=== PATIENT | female | born 1940 | race Caucasian/White ===

== ENCOUNTER 2016-10-03 11:49 | Emergency (ER) | payer MEDICARE ==
[~2016-10-03] VITALS: Ht 157.5 cm; Wt 100.0 kg
[~2016-10-03 11:49] MED LIST: ACET325T51 PO; ALBU8.5H2 INHALATION; ASPI-973 PO; BENZ100C8 PO; DILT240C85 PO; DOCU250C2 PO; FLUT12AE8 IH; FLUT16SP NS; FLUT9.9S NS; GUAI10LI PO; LEVO50TA6 PO; LIP40 PO; LORA10CA PO; MODA200T13 PO; MULT-1018 PO; PANT40TA3 PO; POLY17PO6 PO; PRE20 PO; RANI150C4 PO; SENN-133 PO; TIOT18CA3 IH; WARF2.5T82 PO
[2016-10-03 11:53] VITALS: BP 158/101; PULSE 105; RESP 16; O2SAT 94
--- NOTE | 2016-10-03 13:41 | ED.REPORT ---
HPI-Back Pain 40 and Over Date of Service October 03, 2016 ED Provider: Carlos Smyth PA-C Shanique is a 75-year-old female presenting with a chief complaint of low back pain. She reports back pain over the last several weeks gradually worsening in severity. She states she can no longer sit comfortably for the last 3-4 days. She states that her pain initially started after physical therapy session. Seen 3 days ago at urgent care, diagnosed musculoskeletal pain. X-rays performed. Pain worsening since then. He admits use of blood thinners. Denies numbness, tingling, weakness or pain in lower extremity. Denies fever, DM, HIV, organ transplant, immunosuppression, recent surgery, recent infection, history of back surgery, surgical implants and IV drug use, cancer. Denies bowel/bladder dysfunction and saddle anesthesia. Nursing Notes Stated Complaint: SEVERE PAIN IN BACK Chief Complaint: Back Pain or Injury Nursing Notes Reviewed: Yes Allergies: Coded Allergies: lovastatin (Verified Adverse Reaction, Severe, MUSCLE ACHES/PAIN, 10/03/16) Scheduled Albuterol HFA (Proair HFA) 8.5 Gm Hfa.aer.ad 2 PUFFS INHALATION Q4H Aspirin (Aspirin) 81 Mg Tablet 81 MG PO DAILY Atorvastatin (Lipitor) 40 Mg Tablet 40 MG PO DAILY Cephalexin (Cephalexin) 500 Mg Capsule 500 MG PO QID Diltiazem ER (Cardizem CD) 240 Mg Cap.er.24h 240 MG PO DAILY Fluticasone Propionate (Flonase Allergy Relief) 50 Mcg/Actuation Perley.susp 9.9 ML NS HS Fluticasone Propionate (Flovent HFA 110 mcg) 12 Gm Aer.w.adap 2 PUFFS IH BID Fluticasone Propionate (Fluticasone Propionate Nasal) 16 Gm Perley.susp 2 SPRAY NS BID Levothyroxine (Levothyroxine) 50 Mcg Tablet 50 MCG PO DAILY Loratadine (Claritin) 10 Mg Capsule 10 MG PO DAILY Modafinil (Provigil) 200 Mg Tablet 400 MG PO DAILY Multivitamin (Multi Vitamin Daily) 1 Each Tablet 1 EACH PO DAILY Multivitamin (Multi Vitamin Daily) 1 Each Tablet 1 EACH PO DAILY Pantoprazole DR (Pantoprazole DR) 40 Mg Tablet.dr 40 MG PO DAILY Prednisone (PredniSONE) 20 Mg Tablet 40 MG PO DAILY Tiotropium Quincy (Spiriva) 18 Mcg Cap.w.dev 18 MCG IH DAILY Warfarin Sodium (Warfarin Sodium) 2.5 Mg Tablet 2.5 MG PO DAILY Scheduled PRN Acetaminophen (Acetaminophen) 325 Mg Tablet 325 MG PO Q4H PRN PRN For Fever Benzonatate (Benzonatate) 100 Mg Capsule 100 MG PO TID PRN PRN For Cough Docusate Sodium (Docusate Sodium) 250 Mg Capsule 250 MG PO DAILY PRN PRN For Constipation Guaifenesin/Codeine Phosphate (Guaifenesin-Codeine Syrup) 10 Ml Liquid 10 ML PO Q4H PRN PRN For Cough Polyethylene Glycol 3350 (Miralax) 17 Gm Powd.pack 17 GM PO DAILY PRN PRN For Constipation Ranitidine (Ranitidine) 150 Mg Capsule 150 MG PO DAILY PRN PRN For Dyspepsia or Heartburn Sennosides (Senna) 8.6 Mg Tablet 8.6 MG PO DAILY PRN PRN For Constipation oxyCODONE (oxyCODONE) 5 Mg Tablet 5 MG PO QID PRN PRN For Pain General Time Seen by MD: 13:12 Chief Complaint Back pain Sudden in Onset?: No Past Medical History Past Medical History Hypothyroid Narcolepsy COPD GERD Chronic leg pain Restless leg syndrome Labrynthitis Nephrolithiasis Gastroenteritis Emphysema Aortic regurgitation Hyperlipidemia Obstructive sleep apnea Reports: GERD, Hyperlipidemia, Hypertension Reports: Thyroid disease Past Surgical History knee replacements hycataract times 2 and 4 eye surgery for muscles Reports: Cataract surgery Smoking History Current Every Day Smoker Social History Alcohol Use: "Social" Drug Use: Denies drug use Other Social History: Local resident Occupation lives by self Ambulatory Status Independent Review of Systems General: Denies fever, chills, malaise. HEENT: Denies congestion, headache, sore throat. Respiratory: Denies dyspnea, cough, shortness of breath, wheezing. Cardiovascular: Denies chest pain, palpitations. Gastrointestinal: Denies vomiting, diarrhea, abdominal pain. Genitourinary: Denies frequency, urgency, dysuria, hematuria. Otherwise as noted in HPI. Physical Exam General: Elderly, obese woman, moves with difficulty. Intermittently appears to be in pain. Head: Atraumatic, normocephalic. Eyes: No scleral icterus or injection. No discharge. Vision grossly intact. ENT: Voice clear, hearing grossly intact. Respiratory: Regular rate and rhythm. Breath sounds present, clear to auscultation and equal bilaterally. No respiratory distress. No increased work of breathing, speaks in complete sentences. Cardiovascular: Regular rate and rhythm, without murmur, gallop or rub. 3+ pedal edema. Skin: Warm and dry. Back: Normal to inspection, mild to moderate midline spinous process tenderness near S1, paraspinal lumbar and CVA tenderness greater on left than right.. Neurological: Normal gait. Hip flexion, knee extension, ankle dorsiflexion and plantarflexion strength 5/5 B/L. Patellar and Achilles reflexes present and equal B/L. Sensation to sharp touch intact at medial leg, dorsal foot and lateral foot B/L. negative straight leg raise, negative cross straight leg raise. Psychological: Alert and oriented. Speech appropriate, linear and logical. Behavior appropriate. Initial Vital Signs Vital Signs (First) Date Time Temp Pulse Resp B/P Pulse Ox O2 Delivery O2 Flow Rate FiO2 10/03/16 11:53 36.2 105 16 158/101 94 Room Air Initial VS: Vital signs abnormal (mild tachycardia, hypertension) Interpretation & Diagnostics Lab Results Interpretation Test 10/03/16 13:05 10/03/16 16:45 Urine Color Yellow (YELLOW) Urine Appearance Hazy (CLEAR,HAZY) Urine pH 7.0 (5.0-8.0) Urine Specific [place] 1.010 (1.003-1.035) Urine Protein Negativemg/dL (NEG,TRACE) Urine Glucose (UA) Negativemg/dL (NEGATIVE) Urine Ketones Negativemg/dL (NEGATIVE) Urine Occult Blood Negative (NEGATIVE) Urine Nitrite Negative (NEGATIVE) Urine Bilirubin Negative (NEGATIVE) Urine Urobilinogen Normalmg/dL (NORMAL) Urine Leukocyte Esterase Trace (NEGATIVE) Urine RBC 0-2/hpf (0-2) Urine WBC 6-10/hpf (0-5) Urine Epithelial Cells Occasional/hpf (NONE-MOD) Urine Crystals None seen (NONE SEEN) Urine Bacteria Few/hpf (NONE-FEW) Urine Hyaline Casts None/lpf (NONE) Urine Granular Casts None seen (NONE SEEN) Urine Waxy Casts None seen (NONE SEEN) Urine Red Blood Cell Casts None seen (NONE SEEN) Urine White Blood Cell Casts None seen (NONE SEEN) Urine Mucus None seen (None Seen) Urine Trichomonas None seen (NONE SEEN) Urine Yeast None (NONE SEEN) Urinalysis Comment None Urine Culture Reflexed Indicated Prothrombin Time 17.7sec (8.1-12.5) Prothromb Time International Ratio 1.64ratio Hold Lloyd Top Tube Received (Received) Re-Eval/Medical Decision Med Decision/Clinical Course 75-year-old female presenting with chief complaint of low back pain worsening over the last several weeks. Denies red flag symptoms for cauda equina, epidural abscess or hematoma Seen at urgent care on Monday diagnoses muscular skeletal. Pain worsening since then. X-rays performed at the time reveal a mass in the left abdomen thought to be a kidney stone and no traumatic changes. Physical examination reveals pedal edema which the patient states is at baseline , paraspinal lumbar tenderness, CVA tenderness greater left than right and some spinous process tenderness near S1. Neurological examination is normal. CT KUB reveals a nonobstructing left renalith as well as degenerative changes. Urinalysis is suggestive of a mild urinary tract infection. I discussed this case with Dr. Thomas. Back pain is without red flag symptoms for acute disc herniation, cauda equina, infection, hematoma, trauma, pyelonephritis, nephrolithiasis, AAA, cancer. I believe this is musculoskeletal back pain. I do not believe her back pain is likely to be caused completely by pyelonephritis, but we will treat as though it is. Prescribed Keflex 500 mg 4 times a day 10 days, small amount of oxycodone with precautions, Colace. Advised primary care follow-up and gave emergency return precautions. The patient verbalizes understanding of and consented to plan. Discharge & Departure Impression: Primary Impression: Low back pain Chronicity: acute Back pain laterality: left Sciatica presence: without sciatica Qualified Code: M54.5 - Low back pain Additional Impression: Urinary tract infection Urinary tract infection type: acute pyelonephritis Qualified Code: N10 - Acute pyelonephritis Disposition: Home Discharge Condition All VS Reviewed: Yes Condition: Stable Patient Instructions: Acute Low Back Pain (ED) Additional Instructions: Evaluation in the emergency department for low back pain included history, physical examination, urinalysis and CT scan. These are all reassuring that your back pain is not caused by an immediately dangerous condition. I believe you are stable and safe to be discharged to home. Urinalysis suggests that you have a urinary tract infection, and possibly the early stages of a kidney infection. We will treat this with antibiotics. I will write a prescription for Keflex to be taken 4 times a day for 10 days. The pain is best treated with 500 mg of naproxen (Aleve) every 12 hours, or 650 mg of acetaminophen (Tylenol) every 6 hours. These drugs can be taken at the same time for more severe pain. I will write a prescription for a small amount of oxycodone for pain not controlled by these other [address] or drink alcohol within 4 hours of taking this medication. Also be aware that this medication can increase your risk for fall, so please be cautious. Records indicate a prescription for Colace. Please continue to take this. This reduces the chances of developing constipation with the pain medications. If you develop constipation, I recommend [id number] [id number]. We have also drawn a PT/INR at your request. Your INR is 1.64. Please discuss this with your primary care provider. Follow-up with your primary care provider in about one week to be sure this progressing as expected. Return to emergency department for new or worsening symptoms including increasing pain, fever, vomiting, numbness between your legs, bowel/bladder dysfunction. Referrals: Jo Heart MD (PCP) EDSupervising Provider for APC: Yumiko Thomas MD copies to: Jo Heart MD, Seth PA-C October 03, 2016 13:41
[2016-10-03 13:44] VITALS: BP 136/82; PULSE 99; RESP 14; O2SAT 96
[2016-10-03 14:12] LABS: APPEARANCE,URINE HAZY (CLEAR,HAZY); COLOR,URINE YELLOW (YELLOW); OCCULT BLOOD,URINE NEGATIVE (NEGATIVE); UROBILINOGEN,URINE NORMAL (NORMAL)
[2016-10-03 15:05] VITALS: BP 115/65; PULSE 92; RESP 15; O2SAT 95
--- NOTE | 2016-10-03 15:28 | DRSVH ---
PROCEDURE: CT KUB ([id number]) INDICATIONS: back pain, 1.4 cm density seen on plain film TECHNIQUE: Noncontrast 5 mm thick sections acquired from the diaphragms to the symphysis. 5 mm thick coronal an d sagittal reformats were then performed. For radiation dose reduction, the following was used: aut omated exposure control, adjustment of mA and/or kV according to patient size. COMPARISON: [facility], CT, CT KUB, 01/28/2015, 20:13. FINDINGS: Image quality: Excellent. Lung bases: Lung bases are clear. Heart size is normal. Urinary system: Both kidneys are normal in size. There is a 5 mm right lower lobe renal calcificati on, Hounsfield units 500. It is nonobstructing. No left renal calculi. Left renal cyst is unchanged. Ureters are unremarkable. Bladder wall thickness is normal; no calcified bladder stones. Other solid organs: Liver and spleen are normal in size. Hepatic steatosis is present. Gallbladder i s unremarkable. Pancreas is normal in contours. No adrenal nodules. Peritoneum and bowel: Unenhanced bowel loops demonstrate normal wall thickness and caliber. No free fluid or air. Colonic diverticula are present. There is a mild appearance of diffuse thickening wit hin the sigmoid colon, which has not significantly changed compared to 01/28/15. No pericolonic strand ing. Nodes and vessels: No retroperitoneal or mesenteric adenopathy by size criteria. Aorta and inferior vena cava are normal in caliber. Abdominal wall: No ventral hernias. Pelvis: No free pelvic fluid. No inguinal hernias or adenopathy. Bones: No suspicious bony lesions. There is Grade 1 anterolisthesis of L4 on L5. Multilevel degenera tive changes within the thoracolumbar spine. IMPRESSION: 1. Nonobstructing right renal calculus. Otherwise, no renal or ureteral calculi. 2. Multilevel thoracolumbar degenerative changes. Dictated by: Aleida Domingo M.D. on 10/03/2016 at 15:23 Approved by: Aleida Domingo M.D. on 10/03/2016 at 15:26
[2016-10-03] MEDS ORDERED: OXYC5TAB72 PO (16:46)
[2016-10-03 17:09] LABS: INR 1.64 ratio
[2016-10-03] MEDS ORDERED: CEPH500C PO (17:24)
[2016-10-03 17:31] VITALS: BP 113/47; PULSE 101; RESP 18; O2SAT 95
== END 2016-10-03 17:37 | disposition home or self-care (01) ==
LOC: SED 11:49
DX: M54.5 Low back pain (principal); N10 Acute pyelonephritis; E03.9 Hypothyroidism, unspecified; J44.9 Chronic obstructive pulmonary disease, unspecified; K21.9 Gastro-esophageal reflux disease without esophagitis; E78.5 Hyperlipidemia, unspecified; I10 Essential (primary) hypertension; F17.200 Nicotine dependence, unspecified, uncomplicated; Z87.442 Personal history of urinary calculi; Z79.82 Long term (current) use of aspirin; Z79.01 Long term (current) use of anticoagulants; Z88.8 Allergy status to other drugs, medicaments and biological substances

== ENCOUNTER 2016-10-26 10:52 | Emergency (ER) | payer MEDICARE ==
[~2016-10-26] VITALS: Ht 157.5 cm; Wt 93.2 kg
[~2016-10-26 10:52] MED LIST changes: +CEPH500C PO; +OXYC5TAB72 PO
[2016-10-26 10:56] VITALS: PULSE 111; RESP 28; O2SAT 93
--- NOTE | 2016-10-26 11:12 | ED.REPORT ---
HPI-Abd Pain F 40 and Over Date of Service October 26, 2016 ED Provider: Xavi Fernandez MD Patient is a 75 year old female with a history of COPD, narcolepsy, CVA, brain aneurysm and hypertension who presents to the ED complaining of lower back pain onset 2 months ago. Associated symptoms include abdominal pain and constipation. She denies dysuria, hematuria, fever, vomiting, weakness, numbness or incontinence. Patient states that she has not had any recent injuries or trauma. The patient reports that the pain is exacerbated by movement and has been taking Vicodin for the past 10 days with no relief of pain. She has also been taking laxatives but still feels constipated. Patient was seen at the ED on 10/03/16 for the same complaint, her KUB CT was unremarkable. Nursing Notes Stated Complaint: ABDOMINAL PAIN/BACK PAIN Chief Complaint: Female Abdominal Pain Nursing Notes Reviewed: Yes Allergies: Coded Allergies: lovastatin (Verified Adverse Reaction, Severe, MUSCLE ACHES/PAIN, 10/03/16) Scheduled Albuterol HFA (Proair HFA) 8.5 Gm Hfa.aer.ad 2 PUFFS INHALATION Q4H Aspirin (Aspirin) 81 Mg Tablet 81 MG PO DAILY Atorvastatin (Lipitor) 40 Mg Tablet 40 MG PO DAILY Cephalexin (Cephalexin) 500 Mg Capsule 500 MG PO QID Cephalexin (Keflex) 500 Mg Capsule 500 MG PO QID Diltiazem ER (Cardizem CD) 240 Mg Cap.er.24h 240 MG PO DAILY Fluticasone Propionate (Flonase Allergy Relief) 50 Mcg/Actuation Melfa.susp 9.9 ML NS HS Fluticasone Propionate (Flovent HFA 110 mcg) 12 Gm Aer.w.adap 2 PUFFS IH BID Fluticasone Propionate (Fluticasone Propionate Nasal) 16 Gm Melfa.susp 2 SPRAY NS BID Levothyroxine (Levothyroxine) 50 Mcg Tablet 50 MCG PO DAILY Loratadine (Claritin) 10 Mg Capsule 10 MG PO DAILY Modafinil (Provigil) 200 Mg Tablet 400 MG PO DAILY Multivitamin (Multi Vitamin Daily) 1 Each Tablet 1 EACH PO DAILY Multivitamin (Multi Vitamin Daily) 1 Each Tablet 1 EACH PO DAILY Pantoprazole DR (Pantoprazole DR) 40 Mg Tablet.dr 40 MG PO DAILY Polyethylene Glycol 3350 (Miralax) 17 Gm Powd.pack 17 GM PO HS Prednisone (PredniSONE) 20 Mg Tablet 40 MG PO DAILY Tamsulosin (Flomax) 0.4 Mg Capsule 0.4 MG PO DAILY Tiotropium Adrian (Spiriva) 18 Mcg Cap.w.dev 18 MCG IH DAILY Warfarin Sodium (Warfarin Sodium) 2.5 Mg Tablet 2.5 MG PO DAILY Scheduled PRN Acetaminophen (Acetaminophen) 325 Mg Tablet 325 MG PO Q4H PRN PRN For Fever Benzonatate (Benzonatate) 100 Mg Capsule 100 MG PO TID PRN PRN For Cough Docusate Sodium (Docusate Sodium) 250 Mg Capsule 250 MG PO DAILY PRN PRN For Constipation Guaifenesin/Codeine Phosphate (Guaifenesin-Codeine Syrup) 10 Ml Liquid 10 ML PO Q4H PRN PRN For Cough Hydrocodone-Acetaminophen 5-325 mg (Hydrocodone-Acetaminophen 5-325 mg) 1 Each Tablet 1 TABLET PO Q4H PRN PRN For Pain Polyethylene Glycol 3350 (Miralax) 17 Gm Powd.pack 17 GM PO DAILY PRN PRN For Constipation Ranitidine (Ranitidine) 150 Mg Capsule 150 MG PO DAILY PRN PRN For Dyspepsia or Heartburn Sennosides (Senna) 8.6 Mg Tablet 8.6 MG PO DAILY PRN PRN For Constipation oxyCODONE (oxyCODONE) 5 Mg Tablet 5 MG PO QID PRN PRN For Pain General Time Seen by MD: 11:02 Chief Complaint Other (low back pain) Hx Obtained From: Patient Arrived By: Walk-in Sudden in Onset?: Yes Onset Occurred: More than a week ago... (2 months) Past Medical History Past Medical History Hypothyroid Narcolepsy COPD GERD Chronic leg pain Restless leg syndrome Labrynthitis Nephrolithiasis Gastroenteritis Emphysema Aortic regurgitation Hyperlipidemia Obstructive sleep apnea Reports: GERD, Hyperlipidemia, Hypertension Reports: Thyroid disease Past Surgical History knee replacements hycataract times 2 and 4 eye surgery for muscles Reports: Cataract surgery Smoking History Current Every Day Smoker Social History Alcohol Use: "Social" Drug Use: Denies drug use Other Social History: Local resident Occupation lives by self Ambulatory Status Independent Review of Systems Constitutional: Denies: Fever Respiratory: Denies: Non-productive cough, Shortness of breath GI: Reports: Abdominal pain, Constipation, Denies: Vomiting Female: Denies: Dysuria, Hematuria, Incontinence Musculoskeletal: Reports: Back pain Complete sys rev & neg: except as marked. Neurologic: Denies: Numbness, Weakness Physical Exam Vital Signs Vital Signs (First) Date Time Temp Pulse Resp B/P Pulse Ox O2 Delivery O2 Flow Rate FiO2 10/26/16 10:56 36.1 111 28 93 Room Air 10/26/16 13:36 147/59 Initial VS: Reviewed General/Constitutional: Awake, Alert Distress / Hydration: Positive: Distress mild Appearance / Presentation: Positive: Obese Respiratory / Chest: Atraumatic, No respiratory distress Cardiovascular: Heart rate NL, Regular rhythm, Heart sounds NL, No murmurs Abdomen: Atraumatic, Soft Tenderness/Guarding/Rebound: Positive: Tender diffuse Back: No midline vertebral tend, No CVA tenderness no step off diffuse pain Head / Eyes: Atraumatic, Normocephalic, PERRL, EOMI Skin: Atraumatic, Color NL, No rash, Warm, Dry Neurologic: Oriented X3, Speech NL, No motor deficits, No sensory deficits Lower Extremity / Pelvis / MS: Atraumatic, Full range of motion 5/5 strength bilaterally Psychiatric: Affect NL, Mood NL Interpretation & Diagnostics Interpretation & Diagnostics: KUB CT from 10/03/16 IMPRESSION: 1. Nonobstructing right renal calculus. Otherwise, no renal or ureteral calculi. 2. Multilevel thoracolumbar degenerative changes. Dictated by: Aleida Domingo M.D. on 10/03/2016 at 15:23 Approved by: Aleida Domingo M.D. on 10/03/2016 at 15:26 Lab Results Interpretation Result Diagram: 10/26/16 1115 10/26/16 1115 Test 10/26/16 11:15 10/26/16 13:16 White Blood Count 8.4th/mm3 (3.8-10.1) Red Blood Count 4.28mil/mm3 (3.90-5.20) Hemoglobin 13.8g/dL (12.0-15.6) Hematocrit 42.2% (35.0-46.0) Mean Corpuscular Volume 98.6fL (81-100) Mean Corpuscular Hemoglobin 32.2pg (27.0-35.0) Mean Corpuscular Hemoglobin Concent 32.7% (32.0-37.0) Red Cell Distribution Width 14.2% (12.3-15.4) Platelet Count 374bil/L (150-400) Neutrophils (%) (Auto) 69.8% (40-74) Lymphocytes (%) (Auto) 20.7% (14-46) Monocytes (%) (Auto) 7.7% (4-12) Eosinophils (%) (Auto) 1.0% (0-5) Basophils (%) (Auto) 0.4% (0-3) Sodium Level 141mEq/L (134-144) Potassium Level 3.6mEq/L (3.5-5.2) Chloride Level 99mEq/L (97-108) Carbon Dioxide Level 23mmol/L (18-29) Blood Urea Nitrogen 10mg/dL (8-27) Creatinine 0.51mg/dL (0.57-1.00) Estimat Glomerular Filtration Rate 169mL/min (>59) Glucose Level 110mg/dL (60-99) Calcium Level 9.6mg/dL (8.5-10.1) Magnesium Level 1.5mg/dL (1.6-2.6) Total Bilirubin 0.2mg/dL (0.0-1.2) Aspartate Amino Transf (AST/SGOT) 17U/L (0-50) Alanine Aminotransferase (ALT/SGPT) 11U/L (0-32) Alkaline Phosphatase 177U/L (25-165) Total Protein 7.7g/dL (6.4-8.4) Albumin 3.6g/dL (3.4-5.0) Lipase 8U/L (13-60) Urine Color Straw (YELLOW) Urine Appearance Hazy (CLEAR,HAZY) Urine pH 6.0 (5.0-8.0) Urine Specific [place] 1.010 (1.003-1.035) Urine Protein Negativemg/dL (NEG,TRACE) Urine Glucose (UA) Negativemg/dL (NEGATIVE) Urine Ketones Tracemg/dL (NEGATIVE) Urine Occult Blood Negative (NEGATIVE) Urine Nitrite Negative (NEGATIVE) Urine Bilirubin Negative (NEGATIVE) Urine Urobilinogen Normalmg/dL (NORMAL) Urine Leukocyte Esterase Moderate (NEGATIVE) Urine RBC 0-2/hpf (0-2) Urine WBC 11-50/hpf (0-5) Urine Epithelial Cells Occasional/hpf (NONE-MOD) Urine Crystals None seen (NONE SEEN) Urine Bacteria Few/hpf (NONE-FEW) Urine Hyaline Casts None/lpf (NONE) Urine Granular Casts None seen (NONE SEEN) Urine Waxy Casts None seen (NONE SEEN) Urine Red Blood Cell Casts None seen (NONE SEEN) Urine White Blood Cell Casts None seen (NONE SEEN) Urine Mucus None seen (None Seen) Urine Trichomonas None seen (NONE SEEN) Urine Yeast None (NONE SEEN) Urinalysis Comment None Urine Culture Reflexed Indicated X-Ray Abdominal Interpretation IMPRESSION: 1. Small bowel air fluid levels demonstrated without abnormal dilatation. The findings may represent an ileus, gastroenteritis, or possible early obstruction. Dictated by: Antione Nava M.D. on 10/26/2016 at 11:41 Approved by: Antione Nava M.D. on 10/26/2016 at 11:52 Interpretation / Wet Read by: Interpret - Radiologist CT Abd / Pelvis Interpretation IMPRESSION: 1. A 6 mm nonobstructive right renal stone. No hydronephrosis. 2. Moderate compression fracture of L4. L4 vertebral body has sclerotic appearance. If clinically indicated, MRI of lumbar spine may be obtained for further evaluation. 3. Left renal cyst. 4. Sigmoid diverticulosis. 5. Hydropic gallbladder. 6. Paraspinous muscle atrophy with fatty infiltration. Dictated by: Albertina Cota M.D. on 10/26/2016 at 13:50 Approved by: Albertina Cota M.D. on 10/26/2016 at 14:03 Interpretation / Wet Read by: Interpret - Radiologist Re-Eval/Medical Decision Med Decision/Clinical Course 75-year-old female history of kidney stones presenting with low back pain 2 months. Vital signs stable. She has no neurological deficits. CT scan shows L4 moderate compression fracture. Urine suggests infection. CT shows 6 mm nonobstructing right renal stone. Discussed with urology who recommended discharge home with oral antibiotics with return precautions any sign symptoms pyelonephritis or worsening pain. Discussed with spine surgery who recommended follow-up with primary doctor for brace and pain control. Discharged home in good condition with return precautions for any new or worsening neurological deficits, weakness, numbness, tingling, saddle anesthesia, incontinence, any other new or worsening symptoms. Source of Hx: Old records Re-Evaluation/Progress : Time of Eval: 14:35 Re-Evaluation/Progress Note: Discussed resullts and plan for discharge. The patient understands and agrees to the plan for discharge. All questions were addressed. Consultation #1: Referral / Consult Name: Erlin Nicole MD Consulted With: Surgeon (spinal) Call Returned at: 14:20 [place] Auditor: Agrees with eval, Agrees with plan Note: Recommends patient be discharged and follow up with her primary care physician who can order a brace. Consultation #2: Referral / Consult Name: Concepción Simpson MD Consulted With: Urology Call Returned at: 14:27 [place] Auditor: Agrees with eval, Agrees with plan Note: Recommends the patient be discharged with Flomax and return to the ED if she experiences any worsening symptoms Counseled Regarding: Diagnosis, Lab results, Need for follow-up, When/why to return to ED Discharge & Departure Primary Impression: UTI (urinary tract infection) Urinary tract infection type: site unspecified Hematuria presence: without hematuria Qualified Code: N39.0 - Urinary tract infection, site not specified Additional Impressions: Compression fracture Kidney stones Disposition: Home Discharge Condition All VS Reviewed: Yes Condition: Stable Patient Instructions: Kidney Stones (ED), Urinary Tract Infection in Women (ED) , Vertebral Compression Fracture (ED) Additional Instructions: Thank you for trusting us with your care today. Your labs looked reassuring but you do have an UTI. Your CT showed that you do have a compression fracture in your back. You can take Hydrocodone as prescribed to help with the pain.This can make you drowsy so it's best to take at night. Do not consume alcohol or drive while taking the pain medication. Do not operate heavy machinery while on the medication. You should not combine the pain medication with Acetaminophen. Take the antibiotic, Keflex as prescribed. You can take 1/2 a cap of the laxative, once a day to help with the constipation. It's best to mix with Gatorade or fluids to help make it more tolerable. Please follow up with your primary care physician, she will be able to order a brace for your back. Return to the emergency department if you develop any new or worsening symptoms including fever, vomiting, incontinence, abdominal pain, weakness, tingling or other concerning symptoms. Referrals: Jo Heart MD (PCP) Scribe Attestation Portions of this note were transcribed by Ilene Ardon. I, Dr. Osmany Lin personally performed the history, physical exam and medical decision-making; I reviewed and confirmed the accuracy of the information in the transcribed note. Signed by: Miguel Lim, 10/26/16 and 1435 copies to: Jo Heart MD, Ben M MD October 26, 2016 11:12 Anastacia Ardon October 26, 2016 11:19
[2016-10-26] MEDS ORDERED: 0.9% Sodium Chloride 500 ML IV ONE (11:19)
[2016-10-26] MEDS ORDERED: Ondansetron 2 mg/mL 2 mL Inj IVPUSH PRN (11:20)
[2016-10-26 11:28] LABS: BASOPHILS % (AUTO) 0.4 % (0-3); MONOCYTES % (AUTO) 7.7 % (4-12); Mean Corpuscular Hemoglobin 32.2 pg (27.0-35.0); Mean Corpuscular Volume 98.6 fL (81-100); NEUTROPHILS % (AUTO) 69.8 % (40-74); Platelet Count 374 bil/L (150-400)
[2016-10-26 11:47] LABS: Magnesium 1.5 mg/dL (1.6-2.6)
--- NOTE | 2016-10-26 12:55 | DRSVH ---
PROCEDURE: X-RAY ACUTE ABDOMINAL SERIES ([id number]) INDICATIONS: abdominal pain TECHNIQUE: One view chest and two views of the abdomen were acquired. COMPARISON: [facility], CT, CT KUB, 10/03/2016, 14:21. [facility], CR, ABD ACUTE SERIES, 05/26/2011, 19:06. [facility], CR, XR CHEST 1VW (PORTABLE), 6, 9:22. FINDINGS: Surgical changes and devices: None. Chest: Chronic interstitial reticular opacities are redemonstrated. No acute consolidation. Heart size is normal. No pleural effusions. No pneumoperitoneum. Abdomen: Bowel gas pattern is nonspecific with a few small bowel air fluid levels but no definite ab normal dilatation of the small or large bowel. No suspicious calcifications. Bones: No suspicious bony lesions. IMPRESSION: 1. Small bowel air fluid levels demonstrated without abnormal dilatation. The findings may represen t an ileus, gastroenteritis, or possible early obstruction. Dictated by: Antione Nava M.D. on 10/26/2016 at 11:41 Approved by: Antione Nava M.D. on 10/26/2016 at 11:52
[2016-10-26] MEDS ORDERED: CEPH-512 PO (13:16)
[2016-10-26 13:30] LABS: APPEARANCE,URINE HAZY (CLEAR,HAZY); COLOR,URINE STRAW (YELLOW); OCCULT BLOOD,URINE NEGATIVE (NEGATIVE); UROBILINOGEN,URINE NORMAL (NORMAL)
[2016-10-26] MEDS ORDERED: POLY17PO6 PO (13:32)
[2016-10-26 13:36] VITALS: BP 147/59; PULSE 98; RESP 16; O2SAT 93
--- NOTE | 2016-10-26 14:04 | DRSVH ---
PROCEDURE: CT KUB ([id number]) INDICATIONS: 75 year-old woman with back pain and history of kidney stones TECHNIQUE: Noncontrast 5 mm thick sections acquired from the diaphragms to the symphysis. 5 mm thick coronal an d sagittal reformats were then performed. For radiation dose reduction, the following was used: aut omated exposure control, adjustment of mA and/or kV according to patient size. COMPARISON: [facility], CT, CT ABDOMEN PELVIS W CONTRAST, 04/25/2016, 11:35 PM. [facility], CT, CT KUB, 10/03/2016, 14:21. FINDINGS: Image quality: Excellent. Lung bases: Lung bases are clear. Heart size is normal. Urinary system: There is a 6 mm stone in the inferior pole the right kidney with a CT density 399 HU , demonstrating no change on 10/03/2016. There is no hydronephrosis. Both kidneys are normal in size. Both ureters appear non-dilated throughout their expected courses. Bladder wall thickness is normal ; no calcified bladder stones. Other solid organs: Liver and spleen are normal in size. Gallbladder is distended. Pancreas is nor mal in contours. No adrenal nodules. Peritoneum and bowel: Unenhanced bowel loops demonstrate normal wall thickness and caliber. There a re numerous colonic diverticula in sigmoid colon. No free fluid or air. Nodes and vessels: No retroperitoneal or mesenteric adenopathy by size criteria. Aorta and inferior vena cava are normal in caliber. Abdominal wall: No ventral hernias. Note is made of symmetrical paraspinous muscle atrophy with fat ty infiltration. Extensive aortic calcification consistent with atherosclerosis. Pelvis: No free pelvic fluid. No inguinal hernias or adenopathy. Bones: There is moderate compression fracture of L4. There is grade 1 anterolisthesis of L4 over L5. Severe degenerative changes in lumbar spine. No vertebral body compression fractures. IMPRESSION: 1. A 6 mm nonobstructive right renal stone. No hydronephrosis. 2. Moderate compression fracture of L4. L4 vertebral body has sclerotic appearance. If clinically ind icated, MRI of lumbar spine may be obtained for further evaluation. 3. Left renal cyst. 4. Sigmoid diverticulosis. 5. Hydropic gallbladder. 6. Paraspinous muscle atrophy with fatty infiltration. Dictated by: Albertina Cota M.D. on 10/26/2016 at 13:50 Approved by: Albertina Cota M.D. on 10/26/2016 at 14:03
[2016-10-26] MEDS ORDERED: HYDR-4003 PO (14:26)
[2016-10-26] MEDS ORDERED: TAMS0.4C98 PO (14:55)
[2016-10-26 15:30] VITALS: BP 148/91; PULSE 105; RESP 23; O2SAT 92
== END 2016-10-26 15:04 | disposition home or self-care (01) ==
LOC: SED 10:52
DX: N39.0 Urinary tract infection, site not specified (principal); M48.50XA Collapsed vertebra, not elsewhere classified, site unspecified, initial encounter for fracture; N20.0 Calculus of kidney; K59.00 Constipation, unspecified; J44.9 Chronic obstructive pulmonary disease, unspecified; G47.419 Narcolepsy without cataplexy; Z86.73 Personal history of transient ischemic attack (TIA), and cerebral infarction without residual deficits; I67.1 Cerebral aneurysm, nonruptured; I10 Essential (primary) hypertension; K21.9 Gastro-esophageal reflux disease without esophagitis; E78.5 Hyperlipidemia, unspecified; E07.9 Disorder of thyroid, unspecified; G25.81 Restless legs syndrome; F17.200 Nicotine dependence, unspecified, uncomplicated; Z79.01 Long term (current) use of anticoagulants; Z79.82 Long term (current) use of aspirin; Z88.8 Allergy status to other drugs, medicaments and biological substances
CPT/HCPCS: 36415; 74022; 74176; 80053; 81000; 83690; 83735; 85025; 87086; 87088; 96374; 96375; 99285; J1885; J2270; J7030

== ENCOUNTER 2016-12-07 12:19 | Emergency (ER) | payer MEDICARE ==
[~2016-12-07] VITALS: Ht 157.5 cm; Wt 90.9 kg
[~2016-12-07 12:19] MED LIST changes: +CEPH-512 PO; +HYDR-4003 PO; +TAMS0.4C98 PO
--- NOTE | 2016-12-07 12:38 | ED.REPORT ---
HPI-General Illness Date of Service Dec 07, 2016 ED Provider: Xavi Fernandez MD The patient is a 76 year old female with history of hypertension, hyperlipidemia , GERD, COPD, hypothyroidism, and chronic pain, who presents to the emergency department with multiple complaints. The patient was seen here for a UTI 4 weeks ago and was started on antibiotics. She was seen by her doctor the next day who took her off the antibiotics because there was not a true infection. In the last 2 weeks she has noticed increased bladder incontinence which is abnormal for her. The patient states she knows she needs to urinate but is unable to make it to the restroom. She denies fever, chills, nausea, vomiting or diarrhea. She also has a yeast infection under her breasts and in her groin region. She has also noticed a vaginal discharge, she is unsure the color. She has nystatin cream at home but she is unable to reach these places on her own. She also complains of continued severe back pain from known compression fractures. She was given a brace to wear but has been unable to wear it because of the yeast infection. The patient denies numbness, weakness, problem walking or bowel incontinence. She is currently living at [facility] living and does not have enough assistance at home. Nursing Notes Stated Complaint: POSS INFECTION IN PAIN Nursing Notes Reviewed: Yes Allergies: Coded Allergies: lovastatin (Verified Adverse Reaction, Severe, MUSCLE ACHES/PAIN, 12/07/16) Scheduled Albuterol HFA (Proair HFA) 8.5 Gm Hfa.aer.ad 2 PUFFS INHALATION Q4H Aspirin (Aspirin) 81 Mg Tablet 81 MG PO DAILY Atorvastatin (Lipitor) 40 Mg Tablet 40 MG PO DAILY Cephalexin (Cephalexin) 500 Mg Capsule 500 MG PO QID Cephalexin (Keflex) 500 Mg Capsule 500 MG PO QID Clotrimazole 1% (Clotrimazole 1%) 30 Ml Solution 30 ML TOPICAL BID Diltiazem ER (Cardizem CD) 240 Mg Cap.er.24h 240 MG PO DAILY Fluticasone Propionate (Flonase Allergy Relief) 50 Mcg/Actuation [place].susp 9.9 ML NS HS Fluticasone Propionate (Flovent HFA 110 mcg) 12 Gm Aer.w.adap 2 PUFFS IH BID Fluticasone Propionate (Fluticasone Propionate Nasal) 16 Gm [place].susp 2 SPRAY NS BID Levothyroxine (Levothyroxine) 50 Mcg Tablet 50 MCG PO DAILY Loratadine (Claritin) 10 Mg Capsule 10 MG PO DAILY Modafinil (Provigil) 200 Mg Tablet 400 MG PO DAILY Multivitamin (Multi Vitamin Daily) 1 Each Tablet 1 EACH PO DAILY Multivitamin (Multi Vitamin Daily) 1 Each Tablet 1 EACH PO DAILY Pantoprazole DR (Pantoprazole DR) 40 Mg Tablet.dr 40 MG PO DAILY Polyethylene Glycol 3350 (Miralax) 17 Gm Powd.pack 17 GM PO HS Prednisone (PredniSONE) 20 Mg Tablet 40 MG PO DAILY Tamsulosin (Flomax) 0.4 Mg Capsule 0.4 MG PO DAILY Tiotropium [place] (Spiriva) 18 Mcg Cap.w.dev 18 MCG IH DAILY Warfarin Sodium (Warfarin Sodium) 2.5 Mg Tablet 2.5 MG PO DAILY Scheduled PRN Acetaminophen (Acetaminophen) 325 Mg Tablet 325 MG PO Q4H PRN PRN For Fever Benzonatate (Benzonatate) 100 Mg Capsule 100 MG PO TID PRN PRN For Cough Docusate Sodium (Docusate Sodium) 250 Mg Capsule 250 MG PO DAILY PRN PRN For Constipation Guaifenesin/Codeine Phosphate (Guaifenesin-Codeine Syrup) 10 Ml Liquid 10 ML PO Q4H PRN PRN For Cough Hydrocodone-Acetaminophen 5-325 mg (Hydrocodone-Acetaminophen 5-325 mg) 1 Each Tablet 1 TABLET PO Q4H PRN PRN For Pain Polyethylene Glycol 3350 (Miralax) 17 Gm Powd.pack 17 GM PO DAILY PRN PRN For Constipation Ranitidine (Ranitidine) 150 Mg Capsule 150 MG PO DAILY PRN PRN For Dyspepsia or Heartburn Sennosides (Senna) 8.6 Mg Tablet 8.6 MG PO DAILY PRN PRN For Constipation oxyCODONE (oxyCODONE) 5 Mg Tablet 5 MG PO QID PRN PRN For Pain General Time Seen by MD: 12:33 Chief Complaint Multip medical complaints Hx Obtained From: Patient, Daughter Arrived By: Walk-in Sudden in Onset?: No Onset Occurred: More than a week ago... Symptom Duration: Since onset Location: : Back Quality: Painful Severity: Current: Moderate Severity: Maximum: Severe Recent Healthcare: No recent hospitalization, Recent doctor visit Similar Sx Previous: No Past Medical History Past Medical History Hypothyroid Narcolepsy COPD GERD Chronic leg pain Restless leg syndrome Labrynthitis Nephrolithiasis Gastroenteritis Emphysema Aortic regurgitation Hyperlipidemia Obstructive sleep apnea Reports: Hypertension Past Surgical History Knee replacements Cataract x2 and 4 other eye surgeries Family History Noncontributory Smoking History Current Every Day Smoker Social History Alcohol Use: "Social" Drug Use: Denies drug use Other Social History: Good social support, Lives in [place], Local resident Occupation lives by self Ambulatory Status Independent Review of Systems Full Review of Systems Constitutional: Denies: Chills, Fever GI: Denies: Nausea, Vomiting Female: Reports: Incontinence, Vaginal discharge Musculoskeletal: Reports: Back pain Skin: Reports Itching, Reports Rash Neurologic: Reports: Bladder dysfunction, Denies: Bowel dysfunction, Numbness, Problem walking, Weakness Complete sys rev & neg: except as marked. Physical Exam Vital Signs Vital Signs Date Time Temp Pulse Resp B/P Pulse Ox O2 Delivery O2 Flow Rate FiO2 12/07/16 16:14 78 16 119/67 96 Room Air 12/07/16 14:52 86 17 123/69 95 Room Air 12/07/16 12:39 36.3 110 16 138/86 92 Room Air Initial VS: Reviewed Head / Eyes: Atraumatic, Normocephalic, PERRL ENT: Mucous membranes moist, Conjunctiva normal, No scleral icterus Neck: Supple, Non-tender, Full range of motion Respiratory: Breath sounds normal, Clear to auscultation, No respiratory distress Cardiovascular: Regular rate & rhythm, Heart sounds normal, Intact distal pulses Abdomen / GI: Soft, Non-tender, No guarding, No rebound, No distention Extremities: Vascular intact, Neuro intact, No swelling, No tenderness Neurologic: Alert, Oriented, Nonfocal Psychiatric: Mood/affect normal, Behavior normal, Normal thought content General/Constitutional: Awake, Alert, Cooperative Skin: Warm, Dry Rash / Lesion Notes: Diffuse patches of erythema with hyperpigmented margins under bilateral breasts. Female Genitourinary: Pulverizing And Sifting Operator present (Gianni BERNARD RN) Thick white cottage cheese discharge. Interpretation & Diagnostics Lab Results Interpretation Result Diagram: 12/07/16 1255 12/07/16 1255 Test 12/07/16 12:55 12/07/16 13:50 White Blood Count 8.2th/mm3 (3.8-10.1) Red Blood Count 4.26mil/mm3 (3.90-5.20) Hemoglobin 13.5g/dL (12.0-15.6) Hematocrit 41.0% (35.0-46.0) Mean Corpuscular Volume 96.2fL (81-100) Mean Corpuscular Hemoglobin 31.7pg (27.0-35.0) Mean Corpuscular Hemoglobin Concent 32.9% (32.0-37.0) Red Cell Distribution Width 14.6% (12.3-15.4) Platelet Count 379bil/L (150-400) Neutrophils (%) (Auto) 74.1% (40-74) Lymphocytes (%) (Auto) 18.0% (14-46) Monocytes (%) (Auto) 6.6% (4-12) Eosinophils (%) (Auto) 0.9% (0-5) Basophils (%) (Auto) 0.2% (0-3) Sodium Level 136mEq/L (134-144) Potassium Level 3.5mEq/L (3.5-5.2) Chloride Level 97mEq/L (97-108) Carbon Dioxide Level 21mmol/L (18-29) Blood Urea Nitrogen 14mg/dL (8-27) Creatinine 0.60mg/dL (0.57-1.00) Estimat Glomerular Filtration Rate 140mL/min (>59) Glucose Level 121mg/dL (60-99) Calcium Level 9.9mg/dL (8.5-10.1) Magnesium Level 1.5mg/dL (1.6-2.6) Total Bilirubin 0.2mg/dL (0.0-1.2) Aspartate Amino Transf (AST/SGOT) 15U/L (0-50) Alanine Aminotransferase (ALT/SGPT) 9U/L (0-32) Alkaline Phosphatase 161U/L (25-165) Total Protein 7.4g/dL (6.4-8.4) Albumin 3.7g/dL (3.4-5.0) Hold Lloyd Top Tube Received (Received) Urine Color Yellow (YELLOW) Urine Appearance Hazy (CLEAR,HAZY) Urine pH 5.0 (5.0-8.0) Urine Specific [place] 1.025 (1.003-1.035) Urine Protein Tracemg/dL (NEG,TRACE) Urine Glucose (UA) Negativemg/dL (NEGATIVE) Urine Ketones Negativemg/dL (NEGATIVE) Urine Occult Blood Negative (NEGATIVE) Urine Nitrite Negative (NEGATIVE) Urine Bilirubin Negative (NEGATIVE) Urine Urobilinogen Normalmg/dL (NORMAL) Urine Leukocyte Esterase Negative (NEGATIVE) Urine RBC 0-2/hpf (0-2) Urine WBC 0-5/hpf (0-5) Urine Epithelial Cells Occasional/hpf (NONE-MOD) Urine Crystals None seen (NONE SEEN) Urine Bacteria Few/hpf (NONE-FEW) Urine Hyaline Casts 5/20/lpf (NONE) Urine Granular Casts None seen (NONE SEEN) Urine Waxy Casts None seen (NONE SEEN) Urine Red Blood Cell Casts None seen (NONE SEEN) Urine White Blood Cell Casts None seen (NONE SEEN) Urine Mucus Present (None Seen) Urine Trichomonas None seen (NONE SEEN) Urine Yeast None (NONE SEEN) Urinalysis Comment None Urine Culture Reflexed Not indicated Re-Eval/Medical Decision Med Decision/Clinical Course 76-year-old female street of compression fracture percent in complaining of her typical low back pain for 1 month and a rash on her groin and chest. She has no red flag symptoms no incontinence, weakness numbness tingling. Urine is negative for infection. She does have a diffuse fungal rash under her breasts and in her groin. She also complains of white vaginal discharge. It is thick white cottage cheese like discharge on exam. Her labs are stable. Her vitals are stable. Her pain is likely due to her compression fracture for which she has a brace and is followed by her primary doctor. Her rash appears fungal all be treated with oral flu, as all and topical antifungals. We were able to set up home health to have nurse see her daily. She felt comfortable being discharged home with follow-up with primary doctor. Source of Hx: Old records Time of Eval: 13:26 Re-Evaluation/Progress Note: Discussed plan for workup and social work consult. Time of Eval: 15:06 Re-Evaluation/Progress Note: Rechecked the patient. Discussed plan for discharge. All questions were addressed. Counseled Regarding: Diagnosis, Lab results, Need for follow-up, When/why to return to ED Discharge & Departure Primary Impression: Fungal infection Additional Impression: Compression fracture Disposition: Home Discharge Condition All VS Reviewed: Yes Condition: Stable Patient Instructions: Skin Yeast Infection (ED), Vertebral Compression Fracture (ED) Additional Instructions: Thank you for entrusting us with your care today. You were given one dose of fluconazole in the emergency department today for the yeast infection. Make sure to keep the areas clean and apply the cream as prescribed. Use the resources given to you by the older adult social work specialist for home health. You will benefit from having a nurse come in once daily to help. Wear your brace for the compression fractures. Followup with your regular doctor tomorrow for re-evaluation. Return to the emergency department for any new or concerning symptoms. Referrals: Jo Heart MD (PCP) Scribe Attestation Portions of this note were transcribed by Kimberly Bennett. I, Dr. Fernandez personally performed the history, physical exam and medical decision-making; I reviewed and confirmed the accuracy of the information in the transcribed note. Signed by: Miguel Roman, 12/07/2016 at 1510. copies to: Jo Heart MD, Ben M MD Dec 07, 2016 12:38 Kimberly Bennett Dec 07, 2016 12:42
[2016-12-07 12:39] VITALS: BP 138/86; PULSE 110; RESP 16; O2SAT 92
[2016-12-07 13:12] LABS: BASOPHILS % (AUTO) 0.2 % (0-3); EOSINOPHILS % (AUTO) 0.9 % (0-5); MONOCYTES % (AUTO) 6.6 % (4-12); Mean Corpuscular Hemoglobin 31.7 pg (27.0-35.0); Mean Corpuscular Volume 96.2 fL (81-100); NEUTROPHILS % (AUTO) 74.1 % (40-74); Platelet Count 379 bil/L (150-400)
[2016-12-07 13:37] LABS: Magnesium 1.5 mg/dL (1.6-2.6)
[2016-12-07 14:11] LABS: APPEARANCE,URINE HAZY (CLEAR,HAZY); COLOR,URINE YELLOW (YELLOW)
[2016-12-07 14:12] LABS: OCCULT BLOOD,URINE NEGATIVE (NEGATIVE); UROBILINOGEN,URINE NORMAL (NORMAL)
[2016-12-07 14:52] VITALS: BP 123/69; PULSE 86; RESP 17; O2SAT 95
[2016-12-07] MEDS ORDERED: CLOT30SO TOPICAL (15:05)
[2016-12-07 16:14] VITALS: BP 119/67; PULSE 78; RESP 16; O2SAT 96
== END 2016-12-07 16:15 | disposition home or self-care (01) ==
LOC: SED 12:19
DX: B49 Unspecified mycosis (principal); M48.50XA Collapsed vertebra, not elsewhere classified, site unspecified, initial encounter for fracture; K21.9 Gastro-esophageal reflux disease without esophagitis; I10 Essential (primary) hypertension; E78.5 Hyperlipidemia, unspecified; F17.200 Nicotine dependence, unspecified, uncomplicated; Z79.899 Other long term (current) drug therapy; Z79.82 Long term (current) use of aspirin; Z79.01 Long term (current) use of anticoagulants; E03.9 Hypothyroidism, unspecified
CPT/HCPCS: 36415; 51702; 80053; 81000; 83735; 85025; 85610; 96374; 99284; G0463; J2270

== ENCOUNTER 2016-12-12 13:24 | Emergency (ER) | payer MEDICARE ==
[~2016-12-12] VITALS: Ht 157.5 cm; Wt 90.9 kg
[~2016-12-12 13:24] MED LIST changes: +CLOT30SO TOPICAL
--- NOTE | 2016-12-12 13:27 | ED.REPORT ---
HPI-Back Pain 40 and Over Date of Service Dec 12, 2016 ED Provider: Dr. Garcia Pt is a 76 year old female with a hx of L4 compression fracture, afib on Warfarin, HTN, and hypothyroid presenting to the ED via EMS from [place] complaining of mid-left back pain onset just prior to arrival. Denies numbness, weakness, pain in her legs, incontinence, dysuria, or any other symptoms at this time. As her caregivers were lifting her out of bed this morning, her back got twisted and she began having severe pain. Nursing Notes Stated Complaint: BACK PAIN Chief Complaint: Back Pain Nursing Notes Reviewed: Yes Allergies: Coded Allergies: lovastatin (Verified Adverse Reaction, Severe, MUSCLE ACHES/PAIN, 12/07/16) Scheduled Albuterol HFA (Proair HFA) 8.5 Gm Hfa.aer.ad 2 PUFFS INHALATION Q4H Aspirin (Aspirin) 81 Mg Tablet 81 MG PO DAILY Atorvastatin (Lipitor) 40 Mg Tablet 40 MG PO DAILY Cephalexin (Cephalexin) 500 Mg Capsule 500 MG PO QID Cephalexin (Keflex) 500 Mg Capsule 500 MG PO QID Clotrimazole 1% (Clotrimazole 1%) 30 Ml Solution 30 ML TOPICAL BID Diltiazem ER (Cardizem CD) 240 Mg Cap.er.24h 240 MG PO DAILY Fluticasone Propionate (Flonase Allergy Relief) 50 Mcg/Actuation [place].susp 9.9 ML NS HS Fluticasone Propionate (Flovent HFA 110 mcg) 12 Gm Aer.w.adap 2 PUFFS IH BID Fluticasone Propionate (Fluticasone Propionate Nasal) 16 Gm [place].susp 2 SPRAY NS BID Levothyroxine (Levothyroxine) 50 Mcg Tablet 50 MCG PO DAILY Loratadine (Claritin) 10 Mg Capsule 10 MG PO DAILY Modafinil (Provigil) 200 Mg Tablet 400 MG PO DAILY Multivitamin (Multi Vitamin Daily) 1 Each Tablet 1 EACH PO DAILY Multivitamin (Multi Vitamin Daily) 1 Each Tablet 1 EACH PO DAILY Pantoprazole DR (Pantoprazole DR) 40 Mg Tablet.dr 40 MG PO DAILY Polyethylene Glycol 3350 (Miralax) 17 Gm Powd.pack 17 GM PO HS Prednisone (PredniSONE) 20 Mg Tablet 40 MG PO DAILY Tamsulosin (Flomax) 0.4 Mg Capsule 0.4 MG PO DAILY Tiotropium [place] (Spiriva) 18 Mcg Cap.w.dev 18 MCG IH DAILY Warfarin Sodium (Warfarin Sodium) 2.5 Mg Tablet 2.5 MG PO DAILY Scheduled PRN Acetaminophen (Acetaminophen) 325 Mg Tablet 325 MG PO Q4H PRN PRN For Fever Benzonatate (Benzonatate) 100 Mg Capsule 100 MG PO TID PRN PRN For Cough Docusate Sodium (Docusate Sodium) 250 Mg Capsule 250 MG PO DAILY PRN PRN For Constipation Guaifenesin/Codeine Phosphate (Guaifenesin-Codeine Syrup) 10 Ml Liquid 10 ML PO Q4H PRN PRN For Cough Hydrocodone-Acetaminophen 5-325 mg (Hydrocodone-Acetaminophen 5-325 mg) 1 Each Tablet 1 TABLET PO Q4H PRN PRN For Pain Polyethylene Glycol 3350 (Miralax) 17 Gm Powd.pack 17 GM PO DAILY PRN PRN For Constipation Ranitidine (Ranitidine) 150 Mg Capsule 150 MG PO DAILY PRN PRN For Dyspepsia or Heartburn Sennosides (Senna) 8.6 Mg Tablet 8.6 MG PO DAILY PRN PRN For Constipation oxyCODONE (oxyCODONE) 5 Mg Tablet 5 MG PO QID PRN PRN For Pain General Time Seen by MD: 13:26 Chief Complaint Back pain Hx Obtained From: Patient, EMS Arrived By: Ambulance Sudden in Onset?: Yes Onset Occurred: Just prior to arrival Symptom Duration: Since onset Caused by: Twisting injury Location: : Generalized Quality: Painful Severity: Current: Severe Severity: Maximum: Severe Recent Healthcare: No recent doctor visit, No recent hospitalization Similar Sx Previous: No Past Medical History Past Medical History Afib on Warfarin Hypothyroid Narcolepsy COPD GERD Chronic leg pain Restless leg syndrome Labrynthitis Nephrolithiasis Gastroenteritis Emphysema Aortic regurgitation Hyperlipidemia Obstructive sleep apnea Reports: Hypertension Past Surgical History Knee replacements Cataract x2 and 4 other eye surgeries Family History Noncontributory Smoking History Current Every Day Smoker Social History Alcohol Use: "Social" Drug Use: Denies drug use Other Social History: Good social support, Lives in [place], Local resident Occupation lives by self Ambulatory Status Walker Review of Systems Female: Denies: Dysuria, Urinary frequency, Urinary urgency Musculoskeletal: Reports: Back pain Neurologic: Denies: Bladder dysfunction, Bowel dysfunction, Numbness, Weakness Complete sys rev & neg: except as marked. Physical Exam Initial Vital Signs Vital Signs (First) Date Time Temp Pulse Resp B/P Pulse Ox O2 Delivery O2 Flow Rate FiO2 12/12/16 13:31 36.8 111 20 142/85 93 Room Air Initial VS: Reviewed Head / Eyes: Atraumatic ENT: Mucous membranes moist, Conjunctiva normal, No scleral icterus Extremities: Vascular intact, Neuro intact, No swelling, No tenderness Skin: Warm, Dry, No cyanosis Psychiatric: Mood/affect normal, Behavior normal, Normal thought content General/Constitutional: Awake, Alert Respiratory / Chest: Breath sounds NL, Breath sounds = bilat, No respiratory distress, No rales, No rhonchi, No wheezing Cardiovascular: Heart rate NL, Regular rhythm, Heart sounds NL, No murmurs, Peripheral circulation NL Abdomen: Atraumatic Tenderness/Guarding/Rebound: Positive: Tender diffuse Bowel Sounds / Distention: Positive: Distention moderate Back: Atraumatic, No CVA tenderness Lumbar tenderness Neurologic: Oriented X3, Speech NL, No motor deficits, No sensory deficits, Reflexes equal bilat Intact motor and sensory function L1-S1 bilaterally Interpretation & Diagnostics Interpretation & Diagnostics: CT ABDOMEN AND PELVIS WITH IV CONTRAST: IMPRESSION: 1. Nonobstructing right renal calculus. 2. Superior right renal cyst verses trace perinephric fluid, too small to definitively characterize. 3. Significant stenosis of the superior mesenteric artery as above without course identified appearance of bowel ischemia. Dictated by: Aleida Domingo M.D. on 12/12/2016 at 17:09 Lab Results Interpretation Result Diagram: 12/12/16 1408 12/12/16 1408 Test 12/12/16 14:08 12/12/16 14:20 White Blood Count 7.5th/mm3 (3.8-10.1) Red Blood Count 4.35mil/mm3 (3.90-5.20) Hemoglobin 13.4g/dL (12.0-15.6) Hematocrit 42.0% (35.0-46.0) Mean Corpuscular Volume 96.6fL (81-100) Mean Corpuscular Hemoglobin 30.8pg (27.0-35.0) Mean Corpuscular Hemoglobin Concent 31.9% (32.0-37.0) Red Cell Distribution Width 14.6% (12.3-15.4) Platelet Count 357bil/L (150-400) Neutrophils (%) (Auto) 62.0% (40-74) Lymphocytes (%) (Auto) 26.5% (14-46) Monocytes (%) (Auto) 8.6% (4-12) Eosinophils (%) (Auto) 2.4% (0-5) Basophils (%) (Auto) 0.4% (0-3) Prothrombin Time 16.0sec (8.1-12.5) Prothromb Time International Ratio 1.48ratio Sodium Level 139mEq/L (134-144) Potassium Level 3.7mEq/L (3.5-5.2) Chloride Level 100mEq/L (97-108) Carbon Dioxide Level 23mmol/L (18-29) Blood Urea Nitrogen 10mg/dL (8-27) Creatinine 0.48mg/dL (0.57-1.00) Estimat Glomerular Filtration Rate 181mL/min (>59) Glucose Level 102mg/dL (60-99) Calcium Level 9.2mg/dL (8.5-10.1) Total Bilirubin 0.2mg/dL (0.0-1.2) Aspartate Amino Transf (AST/SGOT) 15U/L (0-50) Alanine Aminotransferase (ALT/SGPT) 11U/L (0-32) Alkaline Phosphatase 150U/L (25-165) Total Protein 6.7g/dL (6.4-8.4) Albumin 3.7g/dL (3.4-5.0) Hold Lloyd Top Tube Received (Received) X-Ray Interpretation Xray Interpretation: LUMBAR SPINE: IMPRESSION: 1. Recent compression fractures of L2 and L4 with suspicion of trabecular compression without measurable volume loss at L3 as well. MRI imaging may be helpful in further evaluating these areas. 2. Chronic degenerative disc disease, facet arthropathy and malalignment lower lumbar spine. 3. 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 Generalized osteoporosis. Dictated by: Nirav Ortiz M.D. on 12/12/2016 at 15:14 Interpretation / Wet Read by: Interpret - Radiologist Re-Eval/Medical Decision Med Decision/Clinical Course Recurring back pain related to L2 and L4 spine fractures. The x-ray showed a question of an L3 fracture and patient had pain with palpation of the abdomen in the back and for this reason a CT was performed to better exclude acute pathology at L3. It does ultimately appear that there are only fractures at L2 and L4. She is neurologically intact. Her labs are unremarkable. I discussed at length and strongly encouraged her to be admitted or transferred to snf where she could have better care however she is insistent that she go back to [facility] assisted [facility]. Her daughter is at the bedside and is agreement with this plan. The patient did get up and ambulate with front-wheeled walker independently is requesting discharge home. Will prescribe low-dose of Vicodin 1/2-1 tablet every 6 hours. Will plan to have her continue wearing her brace, will plan to have her follow-up with her primary care doctor for referral to a spine surgeon and possibly lumbar spine MRI. Additionally her INR was mildly subtherapeutic, I defer this to her primary provider who can adjust her dosage accordingly. Return and follow-up precautions given Re-Evaluation/Progress #1: Time of Eval: 17:23 Patient Status: Condition improved Re-Evaluation/Progress Note: Pt having back spasms. Re-Evaluation/Progress #2: Time of Eval: 18:28 Patient Status: Condition improved Re-Evaluation/Progress Note: Recommended to admit the pt and have her sent to a snf facility for rehab. Pt states that she is able to walk with a walker and would like to go home. Counseled Regarding: Diagnosis, Lab results, Need for follow-up, When/why to return to ED Discharge & Departure Impression: Primary Impression: Back pain Back pain location: back pain in unspecified location Chronicity: unspecified Back pain laterality: unspecified Qualified Code: M54.9 - Dorsalgia, unspecified Disposition: Home Discharge Condition All VS Reviewed: Yes Condition: Improved Additional Instructions: You do have lumbar fractures at L2 and L4. The L2 fracture was present on CT as early as October 26. You should continue to wear the brace. Use a walker at all times. Take Vicodin 1/2-1 tablet every 6 hours as needed for pain. Your INR was mildly low. Follow-up with your primary care or the Coumadin clinic regarding this. may also consider ordering an outpatient MRI and consult with spine surgery as needed. Return to the ER if he develops severe worsening back pain, recurrent falls, weakness or numbness down your legs, bowel or bladder dysfunction, or any other concerns. Referrals: Jo Heart MD (PCP) Scribe Attestation Portions of this note were transcribed by Lorie Alvarez. I, Dr. Garcia personally performed the history, physical exam and medical decision-making; I reviewed and confirmed the accuracy of the information in the transcribed note. Signed by: Miguel Calix, 12/12/16 at 1830. copies to: Jo Heart MD, Timothy S DO Dec 12, 2016 13:27 LORIE ALVAREZ Dec 12, 2016 13:49
[2016-12-12 13:31] VITALS: BP 142/85; PULSE 111; RESP 20; O2SAT 93
[2016-12-12] MEDS ORDERED: HYDROcodone-APAP 5-325 mg Tablet PO ONE ×2 (13:50→17:50)
[2016-12-12 14:13] LABS: BASOPHILS % (AUTO) 0.4 % (0-3); EOSINOPHILS % (AUTO) 2.4 % (0-5); MONOCYTES % (AUTO) 8.6 % (4-12); Mean Corpuscular Hemoglobin 30.8 pg (27.0-35.0); Mean Corpuscular Volume 96.6 fL (81-100); Platelet Count 357 bil/L (150-400)
[2016-12-12 14:27] LABS: INR 1.48 ratio
--- NOTE | 2016-12-12 15:26 | DRSVH ---
PROCEDURE: X-RAY LUMBAR SPINE, 2 OR 3 VIEW INDICATIONS: back pain, known L4 fracture TECHNIQUE: 3 views of the lumbar spine were acquired. COMPARISON: Lumbar spine 09/30/2016; CT KUB 10/03/2016; abdomen series 10/26/2016; CT KUB 10/26/2016 FINDINGS: Bones: 5 [id number] vertebrae are present. Bones are generally osteopenic. Facet arthropathy is prominent at L3-4, L4-5 and L5-S1. There is grade one anterolisthesis at L4-5 and L5-S1, unchanged. D isc degeneration L3-4 and L4-5, possibly L5-S1. Compression fractures are evident at L2 and L4. Both fractures are evident on the most recent CT scan of 10/26/2016, the L4 fracture evident on previous CT of 10/03/2016, both likely new since 09/30/2016. A lthough the L3 vertebral body shows normal height, there is mild increased radiodensity throughout th e vertebral body compared to other elements and this may reflect some compaction of trabecular that l evel as well. Soft tissues: Overlying bowel gas pattern is normal. Vascular calcifications. IMPRESSION: 1. Recent compression fractures of L2 and L4 with suspicion of trabecular compression without measura ble volume loss at L3 as well. MRI imaging may be helpful in further evaluating these areas. 2. Chronic degenerative disc disease, facet arthropathy and malalignment lower lumbar spine. 3. 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 Generalized osteoporosis. Dictated by: Nirav Ortiz M.D. on 12/12/2016 at 15:14 Approved by: Nirav Ortiz M.D. on 12/12/2016 at 15:24
[2016-12-12 16:51] VITALS: BP 136/82; PULSE 99; RESP 18; O2SAT 94
--- NOTE | 2016-12-12 17:23 | DRSVH ---
PROCEDURE: CT ABDOMEN AND PELVIS WITH CONTRAST ([id number]) INDICATIONS: diffuse abd pain, mult L spine Fractures TECHNIQUE: After the administration of intravenous contrast, 5 mm thick sections acquired from the diaphragm to the symphysis. 5 mm coronal and sagittal reformats were acquired. For radiation dose reduction, the following was used: automated exposure control, adjustment of mA and/or kV according to patient siz e. COMPARISON: [facility], CT, CT CHEST WO CON, 01/06/2015, 13:48. [facility], CT, CHEST W/O CONTRAST, 04/04/2013, 14:28. [facility], CT, ABD/PELVIS W/CON (PNL), 02/03/2006, 0:05. FINDINGS: Image quality: Excellent. ABDOMEN: Lung bases: 2 mm right middle lobe nodule seen on series 3 image one is unchanged compared to 01/06/15. Solid organs: Liver and spleen are normal in size and enhancement. Gallbladder is distended without visualized stone or wall thickening. Biliary system is non dilated. Pancreas enhances normally. Th ere is a slight nodularity of the left adrenal gland, unchanged. Kidneys demonstrate normal size and enhancement, without hydronephrosis. Left renal cyst is present measuring 25 mm, new compared to [place] or CT abdomen pelvis dated 02/03/06. There is a 5 mm calcification within the inferior right renal pole , Hounsfield units measuring 636. Punctate calcification was present on the 02/03/06 exam. There is no obstruction. There is a 9 mm focus of superior left renal pole cyst versus perinephric fluid, too sma ll to definitively characterize. Peritoneum and bowel: Bowel loops demonstrate normal wall thickness and caliber. No free fluid or a ir. Colonic diverticula are visualized without surrounding inflammatory change. Nodes and vessels: No retroperitoneal or mesenteric adenopathy by size criteria. Aorta and inferior vena cava are normal in size. There is significant calcification at the origin of the superior mese nteric artery with at least 60-70% stenosis. Bowel appears well opacified. Miscellaneous: No ventral hernias. PELVIS: Genitourinary: Bladder wall thickness is normal. Miscellaneous: No inguinal hernias or adenopathy. Bones: No suspicious bony lesions. Compression deformities are identified at at L2 and L4. IMPRESSION: 1. Nonobstructing right renal calculus. 2. Superior right renal cyst verses trace perinephric fluid, too small to definitively characterize. 3. Significant stenosis of the superior mesenteric artery as above without course identified appearan ce of bowel ischemia. Dictated by: Aleida Domingo M.D. on 12/12/2016 at 17:09 Approved by: Aleida Domingo M.D. on 12/12/2016 at 17:21
[2016-12-12] MEDS ORDERED: HYDR-4003 PO (19:06)
[2016-12-12 19:16] VITALS: PULSE 86; RESP 16
== END 2016-12-12 19:16 | disposition home or self-care (01) ==
LOC: SED 13:24
DX: M54.5 Low back pain (principal); X50.1XXA Overexertion from prolonged static or awkward postures, initial encounter; Y93.89 Activity, other specified; Y92.89 Other specified places as the place of occurrence of the external cause; Y99.8 Other external cause status; I11.9 Hypertensive heart disease without heart failure; I48.91 Unspecified atrial fibrillation; K21.9 Gastro-esophageal reflux disease without esophagitis; E03.9 Hypothyroidism, unspecified; J44.9 Chronic obstructive pulmonary disease, unspecified; F17.200 Nicotine dependence, unspecified, uncomplicated; Z79.82 Long term (current) use of aspirin; Z79.01 Long term (current) use of anticoagulants; Z88.8 Allergy status to other drugs, medicaments and biological substances
CPT/HCPCS: 36415; 72100; 74177; 80053; 85025; 85610; 96374; 96376; 99285; J2270; Q9967